=== PATIENT | male | born 1965 | race Caucasian/White ===

== ENCOUNTER 2019-02-03 20:53 | Inpatient (IN) | payer OTHER ==
[2019-02-03] MEDS ORDERED: ONDANSETRON HCL/PF 4 MG/2 ML VIAL ONE (21:14)
[2019-02-03] MEDS ORDERED: HYDROMORPHONE 1 MG/1 ML DISP.SYRIN ONE ×2 (21:14→23:04)
[2019-02-03] MEDS ORDERED: HYDROMORPHONE INJ 2 MG/ML DISP.SYRIN IV ONE ×2 (21:30)
[2019-02-03] MEDS ORDERED: ONDANSETRON HCL/PF 4 MG/2 ML VIAL IVP ONE (21:30)
[2019-02-03] MEDS ORDERED: IV NS 0.9% 1,000 ML BAG IV ONE ×2 (21:30→22:30)
[2019-02-03] MEDS ORDERED: IV NS 0.9% 250 ML IV ONE (21:59)
[2019-02-03] MEDS ORDERED: IOHEXOL-300 100 ML VIAL IV ONE (21:59)
[2019-02-03] MEDS ORDERED: CT SWABBABLE VALVE TRANS SET 1 EA INFUS.SET MC ONE (21:59)
[2019-02-03] MEDS ORDERED: LEVOFLOXACIN 500 MG /D5W 100ML 500 MG/100 ML PIGGYBACK IV ONE (22:30)
[2019-02-03] MEDS ORDERED: FLAGYL/NS RTU 500 MG/100 ML PIGGYBACK IV ONE (22:30)
[2019-02-03] MEDS ORDERED: LEVOFLOXACIN 500 MG /D5W 100ML 100 ML IV ONE (23:04)
[2019-02-03] MEDS ORDERED: METRONIDAZOLE 500MG/ NS 100ML 100 ML IV ONE (23:04)
[2019-02-04] MEDS ORDERED: ONDANSETRON HCL/PF 4 MG/2 ML VIAL IVP PRN
[2019-02-04] MEDS ORDERED: LEVOFLOXACIN 500 MG /D5W 100ML 500 MG in PREMIX 1 EA IV SCH ×2
[2019-02-04] MEDS ORDERED: MAGNESIUM HYDROXIDE 30 ML UDC PO PRN
[2019-02-04] MEDS ORDERED: MAG HYDROX/AL HYDROX/SIMETH 30 ML UDC PO PRN
[2019-02-04] MEDS ORDERED: ZOLPIDEM TARTRATE 5 MG TABLET PO PRN
[2019-02-04] MEDS ORDERED: HYDROCODONE/APAP 5/325MG 1 EACH TABLET PO PRN
[2019-02-04] MEDS ORDERED: ACETAMINOPHEN 325 MG TABLET PO PRN
[2019-02-04] MEDS ORDERED: Z GUARD REMEDY 2 OZ OINT TP PRN
[2019-02-04] MEDS: IV NS 0.9% 1,000 ML IV SCH ×2 (00:22→09:01)
[2019-02-04] MEDS ORDERED: DIATR MEGLU/DIATRIZOATE SODIUM 120 ML BOTTLE (GASTROGRAPHIN) ONE (01:15)
[2019-02-04] MEDS ORDERED: METRONIDAZOLE 500MG/ NS 100ML 100 ML IV ONE (04:45)
[2019-02-04] MEDS ORDERED: METRONIDAZOLE 500MG/ NS 100ML 500 MG in PREMIX 1 EA IV SCH (05:00)
[2019-02-04] MEDS ORDERED: SORBITOL SOLUTION 30 ML PO ONE (06:00)
[2019-02-04] MEDS: MORPHINE SULFATE INJ 2 MG/ML DISP.SYRIN IV PRN ×3 (06:05→14:09)
[2019-02-04] MEDS: Magnesium 1GM/D5W 100ML PREMIX 100 ML IV SCH ×2 (08:02→08:56)
[2019-02-04] MEDS: PIPERACILLIN /TAZOBACTAM 3.375 G in IV D5W 50 ML IV SCH ×2 (12:28→17:13)
[2019-02-04] MEDS ORDERED: MORPHINE SULFATE INJ 2 MG/ML DISP.SYRIN IV STA (15:46)
[2019-02-04] MEDS ORDERED: MORPHINE SULFATE INJ 4 MG/ML DISP.SYRIN IV PRN (16:00)
[2019-02-04] MEDS: HYDROMORPHONE 1 MG/1 ML DISP.SYRIN IV PRN ×2 (18:46→23:26)
[2019-02-04] MEDS ORDERED: PEG 3350/NA SULF,BICARB,CL/KCL 4,000 ML BOTTLE PO ONE (20:00)
[2019-02-05] MEDS: PIPERACILLIN /TAZOBACTAM 3.375 G in IV D5W 50 ML IV SCH ×3 (00:21→11:53)
[2019-02-05] MEDS ORDERED: MEROPENEM 1 G in IV NS 0.9% 100 ML IV SCH (02:00)
[2019-02-05] MEDS: HYDROMORPHONE 1 MG/1 ML DISP.SYRIN IV PRN (03:42)
[2019-02-05] MEDS ORDERED: SORBITOL SOLUTION 30 ML PO ONE (06:00)
[2019-02-05] MEDS ORDERED: SORBITOL SOLUTION 30 ML ONE (06:18)
[2019-02-05] MEDS: IV NS 0.9% 1,000 ML IV SCH ×3 (07:00→16:00)
[2019-02-05] MEDS ORDERED: ALBUTEROL FS 2.5 MG/3 ML VIAL.NEB ONE ×2 (09:59→10:14)
[2019-02-05] MEDS ORDERED: DIATR MEGLU/DIATRIZOATE SODIUM 30 ML BOTTLE (GASTROGRAPHIN) ONE (16:16)
[2019-02-05] MEDS ORDERED: IV NS 0.9% 250 ML IV ONE (17:09)
[2019-02-05] MEDS ORDERED: IOHEXOL-300 100 ML VIAL IV ONE (17:09)
[2019-02-05] MEDS ORDERED: CT SWABBABLE VALVE TRANS SET 1 EA INFUS.SET MC ONE (17:09)
[2019-02-05] MEDS ORDERED: IV NS 0.9% 500 ML IV ONE (18:00)
[2019-02-05] MEDS ORDERED: MEROPENEM 1 G in IV NS 0.9% 100 ML IV ONE (18:00)
[2019-02-05] MEDS: IV NS 0.9% 1,000 ML IV PRN (22:05)
[2019-02-06] MEDS: MEROPENEM 1 G in IV NS 0.9% 100 ML IV SCH ×3 (01:25→17:20)
[2019-02-06] MEDS: IV NS 0.9% 1,000 ML IV PRN (07:12)
[2019-02-06] MEDS ORDERED: POTASSIUM CHLORIDE 20 MEQ TAB.PRT.SR PO ONE (07:30)
[2019-02-06] MEDS: Magnesium 1GM/D5W 100ML PREMIX 100 ML IV SCH ×2 (08:33→09:33)
[2019-02-06] MEDS ORDERED: ZOLPIDEM TARTRATE 5 MG TABLET ONE (21:45)
[2019-02-07] MEDS: MEROPENEM 1 G in IV NS 0.9% 100 ML IV SCH ×2 (01:44→09:31)
[2019-02-07] MEDS: IV NS 0.9% 1,000 ML IV PRN (05:36)
[2019-02-07] MEDS ORDERED: AMOX-430 PO (13:01)
== END 2019-02-07 13:30 | disposition home or self-care (01) | DRG 394 ==
DX: K35.80 Unspecified acute appendicitis (principal); J98.11 Atelectasis; R65.10 Systemic inflammatory response syndrome (SIRS) of non-infectious origin without acute organ dysfunction; D72.829 Elevated white blood cell count, unspecified; E83.42 Hypomagnesemia; E87.6 Hypokalemia; Z96.642 Presence of left artificial hip joint; R73.9 Hyperglycemia, unspecified; N28.1 Cyst of kidney, acquired; K76.89 Other specified diseases of liver; K59.00 Constipation, unspecified; K43.9 Ventral hernia without obstruction or gangrene; K64.8 Other hemorrhoids; J98.01 Acute bronchospasm